=== PATIENT | male | born 1980 | race Caucasian/White ===

== ENCOUNTER 2017-01-26 11:55 | Emergency (ER) | payer MEDICAID ==
[~2017-01-26] VITALS: Ht 182.9 cm; Wt 117.9 kg
[~2017-01-26 11:55] MED LIST: BUSPAR 10MG TAB10 MG PO; GABAPENTIN800 MG PO; KEFLEX 500MG.500 MG PO; PREDNISONE 20MG20 MG PO; ULTRAM 50 MG TA50 MG PO; ZITHROMAX Z-PA250 M1 PO
[2017-01-26] MEDS ORDERED: SUBOXONE 8 MG-21 FIL SL (12:35)
--- NOTE | 2017-01-26 13:09 | [facility]gent Treatment Center Report ---
History of Present Issue Date/Time Seen by Provider 01/26/17 1256 Visit Reason Pt arrived:Walked Presenting Problem:ABSCESS TO L WRIST. RED SWOLLEN NO DRAINAGE Location if Accident: Onset of symptoms date/time:01/24/1409/27/900 or onset unknown for: Have you (or family members/close friends) recently traveled outside the [place]? N If Yes, where/when: Have you had exposure to infectious disease within the past month? TB? Other? Specify: c/o redness, swelling, tenderness left posterior wrist "for several days" s/p injecting suboxone. Not sure how many days but more painful today. Denies fever, aches, chills but increasing pain w/ ROM left wrist. Tried lancing himself but no drainage. Since then, clear drainage "seeping out". Hasn't taken or tried anything else. Denies hx of abscesses in the past. Source patient Exam Limitations no limitations ALLERGIES Coded Allergies: metoclopramide (From Your Image by Brooke) (01/26/17) Home Medications Reported Medications BUPRENORPHINE HCL/NALOXONE HCL (Suboxone 8 MG-2 MG Sl Film) 1 SL DAILY #14 Gabapentin (Gabapentin 800MG) 800 MG PO Q8 History Medical History General CAD? No Angina: No [place]: No Hypertension? No Hyperlipidemia? No CHF? No DVT? No PE? No COPD? No Asthma? No Anemia? No GERD? No Gastric ulcers? No GI Bleed? No Hernia? No Thyroid Problems? No Hypothyroidism? No CVA? No Seizures? No Diabetes? No UTI? No Stones? No BPH? No GB Disease: No Nephritic Syndrome? No Asplenia? No Hepatitis? No Sickle Cell Disease? No Arthritis? No Migraines? No Cataracts? No Glaucoma? No MRSA? No HIV? No TB? No Anxiety? No Depression? No Cancer? No Immunization HX DT/Tetanus NOT SURE Surgical Hx Previous Surgery?Y RIGHT ARM Social History Smoking Hx Smoker: Current Every Day Smoker Tobacco: Yes Type Cigarettes Packs/day 1 1/2 - 2 Packs Alcohol Alcohol: No Review of Systems All Other Systems Reviewed and Negative Constitutional see HPI Cardiovascular denies chest pain Gastrointestinal denies nausea, denies vomiting Musculoskeletal see HPI Skin see HPI Psychiatric/Neurological denies numbness, denies tingling Physical Exam Vital Signs Vital Signs Date Time Temp Pulse Resp B/P Pulse O2 O2 Flow FiO2 Ox Delivery Rate 01/26 1513 98.2 99 20 131/77 96 01/26 1232 98.2 99 20 131/77 96 01/26 1159 98.2 99 20 131/ 96 General Appearance no apparent distress Respiratory Status No: respiratory distress. Cardiovascular no peripheral edema Peripheral Pulses Pulses normal Yes (radial) Extremities normal range of motion (left wrist), swelling (lt posterior wrist/ distal FA), moderate tenderness lt posterior wrist/distal FA, see skin assessment, left wrist pain only with full ROM, not minimal passive ROM Neurologic alert, no motor/sensory deficits Skin moderate firm swelling and erythema measuring 8cm x 9cm, hot, serous drainage from 2 parallel approx 3mm lacerations in center Medical Decision Making LABS/Meds/Orders Pt receiving controlled substance in ED? No Results/Orders Current Medication Orders Sig/Guerrero Start time Last Medication Dose Route Stop Time Status Admin Clindamycin Phosphate 600 MG ONCE ONE 01/26 1445 DC 01/26 IM 01/26 1446 1453 Clindamycin Phosphate 0 .STK-MED ONE 01/26 1439 DC .ROUTE Diphtheria/Pertussis/ 0 .STK-MED ONE 01/26 1405 DC Tetanus Vacc IM Diphtheria/Pertussis/ 0.5 ML ONCE ONE 01/26 1400 DC 01/26 Tetanus Vacc IM 01/26 1401 1432 Lidocaine/Epinephrine 0 .STK-MED ONE 01/26 1340 DC .ROUTE Consult MD Physician Consult Consult/PCP Dr. Louise AIKEN MD Time Called 1335 Reason Pt. Condition Comments Came to [facility] to examine pt. Ruled out tenosynovitis. recommends incision and drainage w/ clindamycin IM and discharge w/ clinidamycin or bactrim and keflex. Does not feel IV antibx are necessary at this time. Progress [facility] Progress Notes Date 01/26/17 Time 1447 Comment Consulted w/ pharmacy regarding clindamycin 600mg IM. She agrees that is an appropriate dose and can be administered IM but recommends splitting into two seperate injections. Procedures Incision and Drainage Incision and Drainage Risks/benefits discussed with pt/guardian? Yes Problem type Abcess Location left posterior distal FA Size cm 8.0 (8cm x 9cm) Anesthesia Lidocaine 1% Blade Size 11 I & D Procedure Simple, sterile drapes applied, Scalpel incision cm- (2), Pus small amount, Packed (1/4 inch packing strip), Sterile Dressing Applied. Departure Departure Time of Disposition 1450 Disposition DC Home or Self Care(routine) Clinical Impression Primary Impression: Abscess of left forearm Secondary Impressions: Misuse of prescription only drugs Condition STABLE Referrals Tripp Yung (PCP/Family) In 1-2 days AND IMMEDIATELY for new or worsening symptoms Patient Instructions DI for Incision and Drainage of a Skin Abscess, Drug Abuse and Drug Addiction, How to Pack a Wound Additional Instructions Clindamycin given in clinic today Start antibiotic pills tomorrow Wound packing daily. See PCP for follow up within 1-2 days. Call today and schedule appt. Return to ER for ANY new or worsening symptoms. Read attached instructions STRONGLY enc to use suboxone correctly, to not try and perform own incision and drainage and to discuss misuse of suboxone with Dr. Yung so that he can help him get help. States + understanding Discharge Counseling Counseled pt/family regarding diagnosis, medications/RX, home care, follow up needs Prescriptions Current Visit Scripts Clindamycin Hcl (Clindamycin 300MG) 300 MG PO QID #40 CAP at 1927
[2017-01-26] MEDS ORDERED: CLINDAMYCIN HC300 MG PO (14:47)
[2017-01-26 15:13] VITALS: BP 131/77
== END 2017-01-26 15:13 | disposition home or self-care (01) ==
LOC: ER 11:55 → UTC 11:55 → ER 12:20 → UTC 15:13
PROC: 0H9EXZZ Drainage of Left Lower Arm Skin, External Approach (ICD-10-PCS; principal; 2017-01-26)
DX: L02.414 Cutaneous abscess of left upper limb (principal)